=== PATIENT | female | born 1995 ===

== ENCOUNTER 2022-08-22 06:59 | Day surgery (SDC) | payer OTHER | END 2022-08-22 13:45 | disposition home or self-care (01) | LOC: CIR.AMB 06:59 | PROVIDERS: ATTEND Obstetrics & Gynecology Gynecology | DX: N84.0 Polyp of corpus uteri (principal); Z20.822 Contact with and (suspected) exposure to COVID-19 ==

== ENCOUNTER 2023-02-08 10:08 | Outpatient (CLI) | payer OTHER | END 2023-02-08 10:14 | disposition home or self-care (01) | LOC: RAD 10:08 | PROVIDERS: ATTEND Obstetrics & Gynecology | DX: R10.2 Pelvic and perineal pain (principal) ==